=== PATIENT | male | born 1980 | race Caucasian/White ===

== ENCOUNTER → 2016-09-13 | Outpatient (CLI) | payer BC ==
--- NOTE | 2016-09-13 15:33 | DI ---
LEFT ELBOW, 09/13/2016 10:54 AM: Clinical History: Left elbow pain. Previous Exam: None at this facility. 3 views are submitted. There is no acute soft tissue, osseous, or joint abnormality. Reading: Normal left elbow exam.
== END ==
LOC: ORTHO 12:00
PROVIDERS: ATTEND Orthopaedic Surgery
DX: M25.522 Pain in left elbow (principal); M77.12 Lateral epicondylitis, left elbow
CPT/HCPCS: 73080